=== PATIENT | female | born 1995 | race African-American/Black ===

== ENCOUNTER 2017-04-14 18:57 | Emergency (ER) | payer MEDICAID ==
[~2017-04-14] VITALS: Ht 160 cm; Wt 60.4 kg
[2017-04-14 18:59] VITALS: BP 128/79
[2017-04-14 19:56] LABS: HEMATOCRIT 44.6 % (34.6-47.8); HEMOGLOBIN 14.8 g/dL (11.7-16.4); WHITE BLOOD COUNT 10.9 x10^3/uL (3.4-10)
[2017-04-14 20:08] LABS: ASPARTATE AMINO TRANSFERASE 8 U/L (15-37); BLOOD UREA NITROGEN 16 mg/dL (7-18)
== END 2017-04-14 21:52 | disposition home or self-care (01) ==
LOC: ED 21:30
DX: N83.201 Unspecified ovarian cyst, right side (principal)
CPT/HCPCS: 36415; 76830; 80053; 81003; 83690; 84703; 85025; 99285

== ENCOUNTER 2020-02-29 23:17 | Emergency (ER) | payer MEDICAID ==
[~2020-02-29] VITALS: Ht 160 cm; Wt 68.7 kg
--- NOTE | 2020-02-29 23:40 | NUR ---
24 year old female to ED for vaginal bleeding x 2 days. She is . She states her LMP was in December. She denies care. She endorses Bright red blood x a few days and lower abdominal cramping.
[2020-02-29 23:54] LABS: BASOPHILS # (AUTO) 0.03 x10^3/uL (0-0.1); BASOPHILS % (AUTO) 0 % (0-1); EOSINOPHILS % (AUTO) 1 % (1-7); LYMPHOCYTES # (AUTO) 2.89 x10^3/uL (1-3.4); LYMPHOCYTES % (AUTO) 35 % (22-44); MD NO; MEAN CORPUSCULAR HEMOGLOBIN 29.7 pg (27.0-34.8); MEAN CORPUSCULAR HGB CONC 33.4 g/dL (32.4-35.8); MEAN CORPUSCULAR VOLUME 88.9 fL (80-100); MEAN PLATELET VOLUME 8.1 fL (7.4-10.4); MONOCYTES # (AUTO) 0.64 x10^3/uL (0.2-0.8); MONOCYTES % (AUTO) 8 % (2-9); NEUTROPHILS # (AUTO) 4.53 x10^3/uL (1.8-6.8); NEUTROPHILS % (AUTO) 55 % (42-75); PLATELET COUNT 220 x10^3/uL (130-400); RED BLOOD COUNT 4.49 x10^6/uL (3.82-5.3); RED CELL DISTRIBUTION WIDTH 13.4 % (9.6-15.2)
[2020-03-01] MEDS ORDERED: ACETAMINOPHEN 325 MG TABLET PO ONE
[2020-03-01 00:04] LABS: ALBUMIN 3.4 g/dL (3.4-5.0); ANION GAP 7 mmol/L (5-15); CALCIUM 8.6 mg/dL (8.5-10.1); CHLORIDE 110 mmol/L (98-107); CREATININE 0.84 mg/dL (0.55-1.02)
[2020-03-01 00:15] LABS: MICROSCOPIC INDICATED
--- NOTE | 2020-03-01 01:25 | NUR ---
BREAK RN.PT RESTING IN NAD. WAITING FOR US RESULTS. CALL LIGHT IN REACH
[2020-03-01 02:17] VITALS: BP 119/61
== END 2020-03-01 02:20 | disposition home or self-care (01) ==
LOC: ED 03-01 02:07
DX: O46.91 Antepartum hemorrhage, unspecified, first trimester (principal); N93.9 Abnormal uterine and vaginal bleeding, unspecified; Z3A.01 Less than 8 weeks gestation of pregnancy
CPT/HCPCS: 36415; 76801; 80048; 81001; 82040; 84702; 85025; 86901; 87086; 99284

== ENCOUNTER 2020-03-12 09:40 | Emergency (ER) | payer MEDICAID ==
[~2020-03-12] VITALS: Ht 160 cm; Wt 66.3 kg
[2020-03-12 10:22] LABS: MICROSCOPIC AUTO
[2020-03-12 10:42] LABS: BASOPHILS # (AUTO) 0.03 x10^3/uL (0-0.1); BASOPHILS % (AUTO) 0 % (0-1); EOSINOPHILS % (AUTO) 3 % (1-7); LYMPHOCYTES # (AUTO) 2.14 x10^3/uL (1-3.4); LYMPHOCYTES % (AUTO) 34 % (22-44); MD NO; MEAN CORPUSCULAR HGB CONC 33.5 g/dL (32.4-35.8); MEAN CORPUSCULAR VOLUME 89.6 fL (80-100); MEAN PLATELET VOLUME 8.3 fL (7.4-10.4); MONOCYTES # (AUTO) 0.55 x10^3/uL (0.2-0.8); MONOCYTES % (AUTO) 9 % (2-9); NEUTROPHILS # (AUTO) 3.43 x10^3/uL (1.8-6.8); NEUTROPHILS % (AUTO) 54 % (42-75); PLATELET COUNT 233 x10^3/uL (130-400); RED CELL DISTRIBUTION WIDTH 13.2 % (9.6-15.2)
[2020-03-12 10:49] LABS: ALBUMIN 4.2 g/dL (3.4-5.0); ANION GAP 5 mmol/L (5-15); CALCIUM 9.6 mg/dL (8.5-10.1); CHLORIDE 110 mmol/L (98-107)
[2020-03-12 10:54] LABS: CREATININE 0.86 mg/dL (0.55-1.02)
--- NOTE | 2020-03-12 11:16 | NUR ---
LATE ENTRY FOR 1110: PT TO ROOM FROM LOBBY AT THIS TIME.
--- NOTE | 2020-03-12 11:22 | NUR ---
pt to room then to procedure. as
--- NOTE | 2020-03-12 12:15 | NUR ---
back in room, c/o mild cramping. call judy. vss. as
--- NOTE | 2020-03-12 12:26 | NUR ---
labs/us neg awaiting culture. as
--- NOTE | 2020-03-12 12:55 | NUR ---
REPORT RECEIVED, CARE ASSUMED.
--- NOTE | 2020-03-12 12:59 | NUR ---
CONTACT WITH PT. PT SITTING UP ON GURNEY, NO ACUTE DISTRESS NOTED. PT AWARE OF WAITING FOR MD RE-EVAL. NO NEEDS EXPRESSED AT THIS TIME.
--- NOTE | 2020-03-12 13:05 | NUR ---
REPORT TO TL MOSER.
[2020-03-12 13:39] LABS: CLUE CELLS NONE SEEN (NONE SEEN); WET PREP WBCS FEW (FEW)
[2020-03-12 14:07] VITALS: BP 111/70
--- NOTE | 2020-03-12 14:07 | NUR ---
PT CONT SITTING UP ON GURNEY, NO ACUTE DISTRESS NOTED. AWAITING MD RECHECK AND FURTHER DISPOSITION. NO NEEDS EXPRESSED AT THIS TIME.
--- NOTE | 2020-03-12 14:37 | NUR ---
PT DRESSED, NO IV TO DC. REVIEWED DC INSTRUCTIONS WITH PT. UNDERSTANDING VERBALIZED. PT LEFT AMB, GAIT STEADY
== END 2020-03-12 14:39 | disposition home or self-care (01) ==
LOC: ED 12:14
DX: N83.291 Other ovarian cyst, right side (principal); R10.2 Pelvic and perineal pain; R11.0 Nausea
CPT/HCPCS: 36415; 76830; 80048; 81001; 82040; 84702; 85025; 87086; 87210; 87491; 87591; 87808; 99284

== ENCOUNTER 2020-12-02 19:20 | Emergency (ER) | payer MEDICAID ==
[~2020-12-02] VITALS: Ht 162.6 cm; Wt 67.1 kg
[2020-12-02 19:28] VITALS: BP 117/69
[2020-12-02] MEDS ORDERED: OXYcodone/APAP 5/325MG TABLET PO ONE (20:30)
[2020-12-02] MEDS ORDERED: ONDANSETRON ODT 4 MG PO ONE (20:30)
[2020-12-02] MEDS ORDERED: OXYcodone/APAP 5/325MG TABLET ONE (20:33)
[2020-12-02] MEDS ORDERED: ONDANSETRON ODT 4 MG ONE (20:33)
--- NOTE | 2020-12-02 20:35 | NUR ---
HOTEL OPERATION MANAGER PER AUG. PROJECT LEADER AT BEDSIDE.
[2020-12-02 20:46] LABS: BASOPHILS % (AUTO) 0 % (0-1); EOSINOPHILS % (AUTO) 1 % (1-7); LYMPHOCYTES % (AUTO) 17 % (22-44); MD NO; MEAN CORPUSCULAR HEMOGLOBIN 29.8 pg (27.0-34.8); MEAN CORPUSCULAR HGB CONC 33.7 g/dL (32.4-35.8); MEAN PLATELET VOLUME 7.6 fL (7.4-10.4); MONOCYTES % (AUTO) 6 % (2-9); NEUTROPHILS % (AUTO) 76 % (42-75); PLATELET COUNT 218 x10^3/uL (130-400); RED BLOOD COUNT 4.69 x10^6/uL (3.82-5.3); RED CELL DISTRIBUTION WIDTH 13.4 % (9.6-15.2)
[2020-12-02 20:57] LABS: ALANINE AMINOTRANSFERASE 19 U/L (12-78); ALBUMIN 3.9 g/dL (3.4-5.0); ANION GAP 4 mmol/L (5-15); CHLORIDE 111 mmol/L (98-107); CREATININE 0.75 mg/dL (0.55-1.02)
--- NOTE | 2020-12-02 20:59 | NUR ---
PT PROVIDED URINE SAMPLE. UA COLLECTED AND SENT TO LAB. PT AT US.
[2020-12-02 21:01] LABS: ALKALINE PHOSPHATASE 62 U/L (45-117); BILIRUBIN,TOTAL 0.8 mg/dL (0.2-1.0); TOTAL PROTEIN 7.5 g/dL (6.4-8.2)
[2020-12-02 21:21] LABS: MICROSCOPIC INDICATED
== END 2020-12-02 22:13 | disposition home or self-care (01) ==
LOC: ED 22:07
DX: K58.9 Irritable bowel syndrome, unspecified (principal); R11.2 Nausea with vomiting, unspecified; Z90.49 Acquired absence of other specified parts of digestive tract
CPT/HCPCS: 36415; 76830; 80053; 81001; 84703; 85025; 99284; Q0162